=== PATIENT | male | born 1940 | race Asian ===

== ENCOUNTER → 2024-01-07 20:02 | Outpatient (REF) | payer OTHER, SELFPAY | LOC: MRI 20:02 | PROVIDERS: ATTENDING PHYSICIAN Podiatrist; FAMILY PHYSICIAN Family Medicine | DX: M67.472 Ganglion, left ankle and foot (principal) | CPT/HCPCS: 73720; A9575 ==

== ENCOUNTER → 2024-01-24 07:30 | Outpatient (REF) | payer OTHER, SELFPAY | LOC: CLAB 07:30 | PROVIDERS: ATTENDING PHYSICIAN Podiatrist | DX: M79.672 Pain in left foot (principal); M67.472 Ganglion, left ankle and foot | CPT/HCPCS: 88304; 88341; 88342 ==